=== PATIENT | female | born 1990 | race Caucasian/White ===

== ENCOUNTER 2022-10-23 21:45 | Emergency (ER) | payer OTHER ==
[~2022-10-23] VITALS: Ht 170.2 cm; Wt 84.4 kg
[2022-10-23] MEDS ORDERED: LORAZEPAM 2 MG/1 ML VIAL ONE (22:15)
[2022-10-23] MEDS ORDERED: LORAZEPAM 2 MG/1 ML VIAL IV ONE (22:15)
[2022-10-23 22:22] LABS: BASOPHILS # (AUTO) 0.2 K/UL (0.0-0.2); BASOPHILS % (AUTO) 2.2 % (0.0-2.0); EOSINOPHILS # (AUTO) 0.2 K/uL (0.0-0.7); EOSINOPHILS % (AUTO) 2.4 % (0.0-7.0); HEMATOCRIT 30.5 % (31.2-41.9); HEMOGLOBIN 10.1 g/dL (10.9-14.3); LYMPHOCYTES # (AUTO) 2.6 K/uL (0.8-4.8); LYMPHOCYTES % (AUTO) 28.3 % (20.5-51.5); MEAN CORPUSCULAR HEMOGLOBIN 27.5 uug (24.7-32.8); MEAN CORPUSCULAR HGB CONC 33 g/dL (32.3-35.6); MEAN CORPUSCULAR VOLUME 82.7 fL (75.5-95.3); MONOCYTES # (AUTO) 0.6 K/uL (0.1-1.30); MONOCYTES % (AUTO) 6.1 % (0.0-11.0); NEUTROPHILS # (AUTO) 5.6 K/uL (1.8-8.9); PLATELET COUNT (AUTO) 284 K/uL (179-408); RED BLOOD CELL COUNT(AUTO) 3.69 MIL/uL (3.63-4.92); RED CELL DISTRIBUTION WIDTH 14.5 % (12.3-17.7); WHITE BLOOD COUNT (AUTO) 9.1 K/uL (3.8-11.8)
[2022-10-23 22:44] LABS: ALANINE AMINOTRANSFERASE 22 U/L (14-59); ALBUMIN 3.6 g/dL (3.4-5.0); ALKALINE PHOSPHATASE 83 U/L (50-136); ASPARTATE AMINOTRANSFERASE 14 U/L (15-37); BILIRUBIN,DIRECT 0.1 mg/dL (0.0-0.2); BILIRUBIN,TOTAL 0.3 mg/dL (0.2-1.0); CALCIUM 8.9 mg/dL (8.5-10.1); CARBON DIOXIDE 25 mmol/L (21-32); CHLORIDE 102 mmol/L (98-107); CREATININE 0.6 mg/dL (0.6-1.3); GLUCOSE 114 mg/dL (74-106); NT-PRO BNP 66 pg/mL (0-125); POTASSIUM 3.5 mmol/L (3.5-5.1); SODIUM SERUM 138 mmol/L (136-145); TOTAL PROTEIN, SERUM 7.4 g/dL (6.4-8.2); UREA NITROGEN, BLOOD 14 mg/dL (7-18)
[2022-10-23 22:53] LABS: DIFFERENTIAL COMMENT 1
[2022-10-23] MEDS ORDERED: CYCL10TA9 PO (23:10)
[2022-10-23 23:21] VITALS: BP 104/62; TEMP 97.8; O2SAT 99
== END 2022-10-23 23:22 | disposition home or self-care (01) ==
LOC: ER 21:49
DX: M62.830 Muscle spasm of back (principal); R10.2 Pelvic and perineal pain; Z79.899 Other long term (current) drug therapy
CPT/HCPCS: 99285; 96374; 71045; 80076; 80048; 83880; 85025; 84484; 84702; 36415; 93005; J2060; A4663